=== PATIENT | male | born 1990 | race Caucasian/White ===

== ENCOUNTER 2017-07-25 22:33 | Emergency (ER) | payer MEDICAID ==
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
[2017-07-25 23:14] LABS: PLATELET COUNT 317 10^3/uL (150-400)
[2017-07-26 07:06] VITALS: BP 147/66
[2017-07-26] MEDS ORDERED: OLANZapine 10 MG/2 ML VIAL ONE (07:49)
[2017-07-26] MEDS ORDERED: OLANZapine 10 MG/2 ML VIAL IM ONE (07:55)
== END 2017-07-26 10:04 | disposition home or self-care (01) ==
LOC: EEVIPCON 22:33
DX: F28 Other psychotic disorder not due to a substance or known physiological condition (principal)
CPT/HCPCS: 80305; G0480